=== PATIENT | female | born 1970 | race African-American/Black ===

== ENCOUNTER → 2019-08-21 | Outpatient (CLI) | payer OTHER ==
[~2019-08-21] MED LIST: ACETAMINOPHEN325 M1 PO; ADVIL200 M1 PO; AUGMENTIN 875-1 EACH PO; COZAAR 25 MG TA25 M2 PO; HYDROCODON-ACE1 EAC7 PO; NEURONTIN 300300 M1 PO; ORPHENADRINE C100 M2 PO; RAYOS5 MG PO; TRAMADOL 50 MG50 MG PO
== END ==
LOC: MRI 11:45
DX: G93.0 Cerebral cysts (principal)

== ENCOUNTER → 2020-03-09 | Emergency (ER) | payer OTHER ==
[~2020-03-09] VITALS: Ht 160 cm; Wt 149.7 kg
[2020-03-09 12:08] VITALS: BP 187/92
--- NOTE | 2020-03-10 07:57 | EKG ---
[facility] [address] ELECTROCARDIOGRAM REPORT Name: YAHIR ALEXANDRE Room #: REG [facility]#: [id number] Admission: 03/09/20 Attend Phys: Discharge: Date of : 72 Report #: [id number] THIS REPORT FOR: cc: EVON Horan family physician/PCP EVON - Marline family physician/PCP Danie Howard MD [facility] ~ THIS REPORT FOR: //name// [facility] ED Test Date: 2020-03-09 Test Time: 10:46:34 Pat Name: YAHIR ALEXANDRE Department: Room: Gender: F [employer] Field: : 1970 Requested By: Saray Bernal Order Number: [id number] : Danie Howard Measurements Intervals [place] Rate: 83 P: 24 GA: 150 QRS: 5 QRSD: 77 T: 10 QT: 371 QTc: 436 Interpretive Statements Sinus rhythm Borderline low voltage, extremity leads No previous ECG available for comparison Electronically Signed On 03-10-2020 7:57:30 CLEANING SPECIALIST by Danie Howard [email or web address] <ELECTRONICALLY SIGNED> By: Danie Howard MD, FAC 03/10/20 0757 D: [id number] Danie Howard MD, FACC /EPI
== END ==
LOC: ER 10:33
DX: R05 Cough (principal); I10 Essential (primary) hypertension; Z79.899 Other long term (current) drug therapy; Z20.828 Contact with and (suspected) exposure to other viral communicable diseases